=== PATIENT | male | born 1960 | race Caucasian/White ===

== ENCOUNTER 2017-06-30 09:32 | Outpatient (CLI) | payer OTHER ==
--- NOTE | 2017-06-30 10:07 | RAD ---
TWO VIEWS RIGHT HIP: Comparison: None. History: Right hip pain. FINDINGS: Two views of the right hip shows no evidence of acute fracture or dislocation. No degenerative avina es are seen. IMPRESSION: Unremarkable exam. POS: [facility]
== END 2017-06-30 09:33 | disposition home or self-care (01) ==
LOC: NAV RAD 09:32
PROVIDERS: ATTEND Nurse Practitioner Family
DX: M25.551 Pain in right hip (principal)